=== PATIENT | female | born 1960 | race Caucasian/White ===

== ENCOUNTER → 2016-11-01 | Outpatient (CLI) | payer BC ==
[~2016-11-01] MED LIST: DOCU50CA PO; GARLIC; LEVO1TAB13 PO; VITAMIN B-12; VITAMIN D; VITAMIN E; [UNRECOGNIZED DRUG - CODE] PO
== END ==
LOC: WC.BC 12:32
DX: Z12.31 Encounter for screening mammogram for malignant neoplasm of breast (principal); Z80.3 Family history of malignant neoplasm of breast
CPT/HCPCS: 77063; G0202